=== PATIENT | female | born 1985 | race Caucasian/White ===

== ENCOUNTER 2025-02-27 14:08 | Emergency (ER) | payer MEDICAID ==
[2025-02-27 15:03] LABS: STREP A BY PCR NOT DETECTED (NOT DETECT)
[2025-02-27 15:15] LABS: CORONAVIRUS COVID-19 NAA NEGATIVE (NEGATIVE); INFLUENZA A NAA NEGATIVE (NEGATIVE); INFLUENZA B NAA NEGATIVE (NEGATIVE); RESPIRATORY SYNCYTIAL VIR NAA NEGATIVE (NEGATIVE)
== END 2025-02-27 15:40 | disposition home or self-care (01) ==
LOC: JP.ED 14:08
DX: J06.9 Acute upper respiratory infection, unspecified (principal); Z91.09 Other allergy status, other than to drugs and biological substances; Z79.899 Other long term (current) drug therapy
CPT/HCPCS: 87637; 87651; 99283; 99284